=== PATIENT | female | born 1980 | race Caucasian/White ===

== ENCOUNTER 2021-07-31 17:15 | Emergency (ER) | payer OTHER ==
[2021-07-31 18:11] VITALS: BP 110/73; PULSE 85; TEMP 98.9; BMI 19.2
[2021-07-31 18:57] LABS: EPITHELIAL CELLS FEW /hpf
== END 2021-07-31 18:51 | disposition home or self-care (01) ==
LOC: FER 17:15
DX: N39.0 Urinary tract infection, site not specified (principal)
CPT/HCPCS: 81003; 81015; 87086; 87186; 99283-25